=== PATIENT | male | born 1970 ===

== ENCOUNTER 2019-03-30 20:12 | Emergency (ER) | payer OTHER ==
[2019-03-30 20:42] VITALS: BP 144/85
--- NOTE | 2019-03-30 20:46 | UC ---
Ear Complaint HPI - HPI Summary HPI Summary: 48-year-old male comes in with a chief complaint of an earbud stuck in his right ear. Started about 30 minutes ago. He's very agitated due to to the foreign body in the ear canal. Has not been able to get it out. - History of Current Complaint Chief Complaint: UCEar Stated Complaint: RIGHT EAR COMPLAINT Time Seen by Provider: 03/30/19 20:44 Pain Intensity: 10 - Allergies/Home Medications Allergies/Adverse Reactions: Allergies Allergy/AdvReac Type Severity Reaction Status Date / Time No Known Allergies Allergy Verified 03/30/19 20:36 Home Medications: Home Medications NK [No Home Medications Reported] 03/30/19 [History Confirmed 03/30/19] PMH/Surg Hx/FS Hx/Imm Hx Previously Healthy: Yes - Surgical History Surgical History: Unable to Obtain/Confirm - Family History Known Family History: Positive: Non-Contributory - Social History Alcohol Use: unknown Alcohol Amount: unknown Substance Use Type: Other Substance Use Comment - Amount & Last Used: unknown Smoking Status (MU): Unknown if Ever Smoked Review of Systems All Other Systems Reviewed And Are Negative: Yes Constitutional: Positive: Negative Skin: Positive: Negative Eyes: Positive: Negative ENT: Positive: Ear Ache Respiratory: Positive: Negative Cardiovascular: Positive: Negative Gastrointestinal: Positive: Negative Motor: Positive: Negative Neurovascular: Positive: Negative Musculoskeletal: Positive: Negative Neurological: Positive: Negative Psychological: Positive: Negative Is Patient Immunocompromised?: No Physical Exam Triage Information Reviewed: Yes Appearance: Well-Appearing, Well-Nourished, Other: - Agitated Vital Signs: Initial Vital Signs Temp 98 F 03/30/19 20:38 Pulse 101 03/30/19 20:38 Resp 20 03/30/19 20:38 BP 144/85 03/30/19 20:38 Pulse Ox 99 03/30/19 20:38 Vital Signs Reviewed: Yes Eye Exam: Normal Eyes: Positive: Conjunctiva Clear ENT: Positive: Other - There is a black soft rubber earbud foreign body in the right ear canal which I removed with alligator forceps. Neck: Positive: Supple Respiratory: Positive: No respiratory distress Musculoskeletal: Positive: Strength Intact, ROM Intact Neurological: Positive: Alert, Muscle Tone Normal Psychological: Positive: Other: - Agitated until cleared by Veronica out that he was called Skin Exam: Normal Ear Complaint Course/Dx - Course Course Of Treatment: When I remove the foreign body from the ear the patient felt a lot better. Patient's follow-up with ENT if not completely improved. - Differential Dx/Diagnosis Provider Diagnosis: Foreign body in right ear Discharge ED - Sign-Out/Discharge Documenting (check all that apply): Patient Departure All imaging exams completed and their final reports reviewed: No Studies - Discharge Plan Condition: Stable Disposition: HOME Patient Education Materials: Ear Foreign Body (ED) Referrals: Jos Adler MD [Primary Care Provider] - Enrique Milton MD [Medical Doctor] - Joesph Victor MD [Medical Doctor] - Additional Instructions: FOLLOW UP WITH ENT IF NOT COMPLETELY IMPROVED. GET REEVALUATED SOONER IF NOT IMPROVING OR WORSE OR ANY QUESTIONS OR CONCERNS. - Billing Disposition and Condition Condition: STABLE Disposition: Home
== END 2019-03-30 20:50 | disposition home or self-care (01) ==
LOC: UCCORT 20:12
DX: T16.1XXA Foreign body in right ear, initial encounter (principal); X58.XXXA Exposure to other specified factors, initial encounter; Y92.9 Unspecified place or not applicable
CPT/HCPCS: 69200; 99211; G0463

== ENCOUNTER 2019-04-28 09:49 | Emergency (ER) | payer OTHER ==
[2019-04-28 09:57] VITALS: BP 124/88
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
== END 2019-04-28 10:34 | disposition home or self-care (01) ==
LOC: UCCORT 09:49
DX: B02.9 Zoster without complications (principal); Z87.891 Personal history of nicotine dependence
CPT/HCPCS: 99212; G0463